=== PATIENT | female | born 1960 | race Two or more races ===

== ENCOUNTER → 2017-02-06 | Outpatient (CLI) | payer OTHER ==
[2017-02-06 13:00] LABS: ALBUMIN 3.4 g/dL (3.4-5.0); CARBON DIOXIDE 24 mmol/L (22-29); CHLORIDE 103 mmol/L (98-107); CREATININE 0.89 mg/dL (0.60-1.30); GLOMERULAR FILTR. RATE CALC > 60 mL/min (>60); PHOSPHORUS 4.4 mg/dL (2.5-4.9); POTASSIUM 4.9 mmol/L (3.5-5.1); SODIUM SERUM 135 mmol/L (136-145); UREA NITROGEN, BLOOD 24 mg/dL (7-18)
[2017-02-06 17:05] LABS: ANION GAP 8 mmol/L (8-16)
[2017-02-08 09:29] LABS: ALBUMIN URINE (ELP24) 76.3 %; ALPHA-1 URINE (ELP24) 2.4 %; GAMMA URINE(ELP24) 7.2 %; TOTAL PROTEIN URINE 67.8 mg/dL (Not Estab.)
[2017-02-08 09:29] LABS: ALBUMIN URINE 77.1 %; BETA URINE 9.3 %; GAMMA URINE 6.9 %; TOTAL PROTEIN URINE 53.9 mg/dL (Not Estab.); UPEP M-SPIKE % Not Observed % (Not Observed)
[2017-02-08 10:18] LABS: ALBUMIN (IFE & ELECTROPHOR) 3.2 g/dL (2.9-4.4); IGG (IMMUNOFIXATION) 1037 mg/dL (700-1600); M-SPIKE (IEP) Not Observed g/dL (Not Observed); TOTAL PROTEIN 6.6 g/dL (6.0-8.5)
== END | disposition home or self-care (01) ==
LOC: LABPV 10:20
PROVIDERS: ATTEND Hospitalist
DX: E11.22 Type 2 diabetes mellitus with diabetic chronic kidney disease (principal); N18.3 Chronic kidney disease, stage 3 (moderate); E87.5 Hyperkalemia
CPT/HCPCS: 81050; 82575; 82784; 84155; 84156; 84165; 84166; 86334; 86335

== ENCOUNTER → 2018-07-05 | Outpatient (CLI) | payer OTHER ==
[2018-07-05 10:40] LABS: BASOPHILS % (AUTO) 0.3 % (0.0-2.0); EOSINOPHILS % (AUTO) 1.4 % (1.0-6.0); HEMATOCRIT 27.8 % (36-46); HEMOGLOBIN 9.1 g/dL (12.0-16.0); LYMPHOCYTES # (AUTO) 2.5 K/uL (1.0-4.8); LYMPHOCYTES % (AUTO) 18.3 % (22.0-44.0); MEAN CORPUSCULAR HEMOGLOBIN 30.6 pg (26.0-34.0); MEAN CORPUSCULAR HGB CONC 32.8 G/dL (31.0-37.0); MEAN CORPUSCULAR VOLUME 93 fL (80-100); MONOCYTES # (AUTO) 0.6 K/uL (0.1-1.0); MONOCYTES % (AUTO) 4.6 % (2.0-9.0); NEUTROPHILS # (AUTO) 10.3 K/uL (1.8-7.7); NEUTROPHILS % (AUTO) 75.4 % (40.0-70.0); PLATELET COUNT (AUTO) 343 K/uL (150-450); RED BLOOD CELL COUNT(AUTO) 2.99 MIL/uL (4.00-5.20); RED CELL DISTRIBUTION WIDTH 13.6 % (11.5-14.5)
[2018-07-05 11:22] LABS: HEMOGLOBIN A1C 7.8 % (4.5-6.2)
[2018-07-05 11:24] LABS: ALBUMIN 3.6 g/dL (3.4-5.0); CALCIUM, TOTAL 8.7 mg/dL (8.8-10.5); CREATININE 1.67 mg/dL (0.60-1.30); PHOSPHORUS 4.5 mg/dL (2.5-4.9); POTASSIUM 5.4 mmol/L (3.5-5.1)
[2018-07-05 11:28] LABS: CREATININE,URINE RANDOM 35.6 mg/dL (30.0-125.0); PROTEIN,URINE RANDOM 9 mg/dL (0-11.9)
[2018-07-05 11:43] LABS: APPEARANCE,URINE CLEAR (CLEAR); BILIRUBIN,URINE NEGATIVE (NEGATIVE); GLUCOSE, URINE (UA) NEGATIVE (NEGATIVE); KETONES,URINE NEGATIVE (NEGATIVE); LEUKOCYTE ESTERASE ,URINE TRACE (NEGATIVE); NITRATE,URINE NEGATIVE (NEGATIVE); OCCULT BLOOD,URINE NEGATIVE (NEGATIVE); PROTEIN,URINE NEGATIVE (NEGATIVE); UROBILINOGEN,URINE 0.2 mg/dL (<=1.0)
[2018-07-05 12:00] LABS: BACTERIA,URINE Many /HPF (None Seen); RBC,URINE 0-2 /HPF (0-2); SQUAMOUS EPITHELIAL CELL,UR Few /LPF (None Seen); WBC,URINE 0-2 /HPF (0-5)
== END | disposition home or self-care (01) ==
LOC: LABPV 08:27
PROVIDERS: ATTEND Hospitalist
DX: I12.9 Hypertensive chronic kidney disease with stage 1 through stage 4 chronic kidney disease, or unspecified chronic kidney disease (principal); E11.22 Type 2 diabetes mellitus with diabetic chronic kidney disease; N18.3 Chronic kidney disease, stage 3 (moderate); E55.9 Vitamin D deficiency, unspecified
CPT/HCPCS: 82570; 83036; 83970; 84156; 87086

== ENCOUNTER → 2018-08-16 | Outpatient (CLI) | payer OTHER ==
[2018-08-16 12:17] LABS: CREATININE,URINE RANDOM 56.1 mg/dL (30.0-125.0)
[2018-08-16 12:22] LABS: ALBUMIN 3.3 g/dL (3.4-5.0); CALCIUM, TOTAL 8.3 mg/dL (8.8-10.5); CREATININE 1.27 mg/dL (0.60-1.30); POTASSIUM 4.3 mmol/L (3.5-5.1)
== END | disposition home or self-care (01) ==
LOC: LABPV 10:36
PROVIDERS: ATTEND Hospitalist
DX: E11.22 Type 2 diabetes mellitus with diabetic chronic kidney disease (principal); E11.21 Type 2 diabetes mellitus with diabetic nephropathy; N18.3 Chronic kidney disease, stage 3 (moderate)
CPT/HCPCS: 82570; 84156

== ENCOUNTER → 2018-12-10 | Outpatient (CLI) | payer OTHER ==
[2018-12-10 13:34] LABS: BASOPHILS % (AUTO) 0.4 % (0.0-2.0); EOSINOPHILS % (AUTO) 1.7 % (1.0-6.0); HEMATOCRIT 27.9 % (36-46); HEMOGLOBIN 9.1 g/dL (12.0-16.0); LYMPHOCYTES # (AUTO) 2.6 K/uL (1.0-4.8); MEAN CORPUSCULAR HEMOGLOBIN 29.4 pg (26.0-34.0); MEAN CORPUSCULAR HGB CONC 32.8 G/dL (31.0-37.0); MEAN CORPUSCULAR VOLUME 90 fL (80-100); MONOCYTES # (AUTO) 0.7 K/uL (0.1-1.0); NEUTROPHILS # (AUTO) 7.5 K/uL (1.8-7.7); NEUTROPHILS % (AUTO) 67.9 % (40.0-70.0); PLATELET COUNT (AUTO) 348 K/uL (150-450); RED BLOOD CELL COUNT(AUTO) 3.11 MIL/uL (4.00-5.20); RED CELL DISTRIBUTION WIDTH 14.5 % (11.5-14.5)
[2018-12-10 13:42] LABS: APPEARANCE,URINE CLEAR (CLEAR); BILIRUBIN,URINE NEGATIVE (NEGATIVE); GLUCOSE, URINE (UA) NEGATIVE (NEGATIVE); KETONES,URINE NEGATIVE (NEGATIVE); LEUKOCYTE ESTERASE ,URINE MODERATE (NEGATIVE); NITRATE,URINE NEGATIVE (NEGATIVE); OCCULT BLOOD,URINE NEGATIVE (NEGATIVE); PROTEIN,URINE NEGATIVE (NEGATIVE); UROBILINOGEN,URINE 0.2 mg/dL (<=1.0)
[2018-12-10 13:43] LABS: HEMOGLOBIN A1C 8.8 % (4.5-6.2)
[2018-12-10 13:47] LABS: ALBUMIN 3.3 g/dL (3.4-5.0); BILIRUBIN,DIRECT 0.1 mg/dL (0.00-0.20); BILIRUBIN,TOTAL 0.4 mg/dL (0.1-1.0); TOTAL PROTEIN, SERUM 7.2 g/dL (6.4-8.2); URIC ACID 8.2 mg/dL (2.6-7.2)
[2018-12-10 13:51] LABS: % IRON SATURATION 20.3 % (22-44)
[2018-12-10 13:57] LABS: RBC,URINE None Seen /HPF (0-2)
[2018-12-10 13:58] LABS: BACTERIA,URINE Moderate /HPF (None Seen); SQUAMOUS EPITHELIAL CELL,UR Few /LPF (None Seen)
== END | disposition home or self-care (01) ==
LOC: LABPV 10:09
PROVIDERS: ATTEND Hospitalist
DX: I12.9 Hypertensive chronic kidney disease with stage 1 through stage 4 chronic kidney disease, or unspecified chronic kidney disease (principal); E11.22 Type 2 diabetes mellitus with diabetic chronic kidney disease; N18.4 Chronic kidney disease, stage 4 (severe); E11.3299 Type 2 diabetes mellitus with mild nonproliferative diabetic retinopathy without macular edema, unspecified eye
CPT/HCPCS: 82043; 82306; 82570; 83036; 83540; 83550; 83970; 84550; 87086

== ENCOUNTER → 2018-12-27 | Outpatient (CLI) | payer OTHER ==
[2018-12-27 11:28] LABS: ALBUMIN 3.2 g/dL (3.4-5.0); CALCIUM, TOTAL 8.8 mg/dL (8.8-10.5); CREATININE 1.35 mg/dL (0.60-1.30); PHOSPHORUS 4.8 mg/dL (2.5-4.9)
== END | disposition home or self-care (01) ==
LOC: LABPV 10:38
PROVIDERS: ATTEND Hospitalist
DX: I12.9 Hypertensive chronic kidney disease with stage 1 through stage 4 chronic kidney disease, or unspecified chronic kidney disease (principal); E11.22 Type 2 diabetes mellitus with diabetic chronic kidney disease; N18.3 Chronic kidney disease, stage 3 (moderate)

== ENCOUNTER → 2019-03-25 | Outpatient (CLI) | payer OTHER ==
[2019-03-25 13:13] LABS: BASOPHILS % (AUTO) 0.4 % (0.0-2.0); EOSINOPHILS % (AUTO) 1.9 % (1.0-6.0); HEMATOCRIT 28.9 % (36-46); HEMOGLOBIN 9.4 g/dL (12.0-16.0); LYMPHOCYTES # (AUTO) 2.7 K/uL (1.0-4.8); MEAN CORPUSCULAR HEMOGLOBIN 30.1 pg (26.0-34.0); MEAN CORPUSCULAR HGB CONC 32.4 G/dL (31.0-37.0); MEAN CORPUSCULAR VOLUME 93 fL (80-100); MONOCYTES # (AUTO) 0.8 K/uL (0.1-1.0); MONOCYTES % (AUTO) 7.3 % (2.0-9.0); NEUTROPHILS # (AUTO) 7.1 K/uL (1.8-7.7); NEUTROPHILS % (AUTO) 65.4 % (40.0-70.0); PLATELET COUNT (AUTO) 394 K/uL (150-450); RED BLOOD CELL COUNT(AUTO) 3.11 MIL/uL (4.00-5.20); RED CELL DISTRIBUTION WIDTH 12.9 % (11.5-14.5)
[2019-03-25 13:17] LABS: PROTEIN,URINE RANDOM 27 mg/dL (0-11.9)
[2019-03-25 13:20] LABS: APPEARANCE,URINE CLEAR (CLEAR); BILIRUBIN,URINE NEGATIVE (NEGATIVE); GLUCOSE, URINE (UA) NEGATIVE (NEGATIVE); KETONES,URINE NEGATIVE (NEGATIVE); LEUKOCYTE ESTERASE ,URINE SMALL (NEGATIVE); NITRATE,URINE NEGATIVE (NEGATIVE); OCCULT BLOOD,URINE NEGATIVE (NEGATIVE); PROTEIN,URINE NEGATIVE (NEGATIVE); UROBILINOGEN,URINE 0.2 mg/dL (<=1.0)
[2019-03-25 13:23] LABS: ALBUMIN 3.4 g/dL (3.4-5.0); CALCIUM, TOTAL 9.2 mg/dL (8.8-10.5); CREATININE 1.49 mg/dL (0.60-1.30); PHOSPHORUS 5.2 mg/dL (2.5-4.9); POTASSIUM 5.2 mmol/L (3.5-5.1)
[2019-03-25 13:29] LABS: BACTERIA,URINE Moderate /HPF (None Seen); RBC,URINE None Seen /HPF (0-2); SQUAMOUS EPITHELIAL CELL,UR Few /LPF (None Seen)
== END | disposition home or self-care (01) ==
LOC: LABPV 12:42
PROVIDERS: ATTEND Hospitalist
DX: I12.9 Hypertensive chronic kidney disease with stage 1 through stage 4 chronic kidney disease, or unspecified chronic kidney disease (principal); E11.22 Type 2 diabetes mellitus with diabetic chronic kidney disease; N18.3 Chronic kidney disease, stage 3 (moderate); E11.21 Type 2 diabetes mellitus with diabetic nephropathy
CPT/HCPCS: 82043; 82570; 84156; 87086

== ENCOUNTER → 2019-07-10 | Outpatient (CLI) | payer OTHER ==
[2019-07-11 10:47] LABS: APPEARANCE,URINE CLOUDY (CLEAR); GLUCOSE, URINE (UA) NEGATIVE (NEGATIVE); OCCULT BLOOD,URINE NEGATIVE (NEGATIVE); PH,URINE 5.5 (5.0-8.0); PROTEIN,URINE NEGATIVE (NEGATIVE)
[2019-07-11 10:48] LABS: BILIRUBIN,URINE NEGATIVE (NEGATIVE); KETONES,URINE NEGATIVE (NEGATIVE); LEUKOCYTE ESTERASE ,URINE LARGE (NEGATIVE); NITRATE,URINE NEGATIVE (NEGATIVE); UROBILINOGEN,URINE 0.2 mg/dL (<=1.0)
[2019-07-11 10:49] LABS: BACTERIA,URINE None Seen /HPF (None Seen); RBC,URINE None Seen /HPF (0-2); SQUAMOUS EPITHELIAL CELL,UR Few /LPF (None Seen)
[2019-07-11 10:51] LABS: CREATININE 1.3 mg/dL (0.60-1.30); HEMOGLOBIN A1C 8.3 % (4.5-6.2); PHOSPHORUS 3.9 mg/dL (2.5-4.9); POTASSIUM 5.2 mmol/L (3.5-5.1)
[2019-07-11 10:52] LABS: ALBUMIN 3.7 g/dL (3.4-5.0)
[2019-07-11 10:55] LABS: HEMATOCRIT 31.8 % (36-46); MEAN CORPUSCULAR HEMOGLOBIN 30.1 pg (26.0-34.0); MEAN CORPUSCULAR HGB CONC 31.5 G/dL (31.0-37.0); MEAN CORPUSCULAR VOLUME 95 fL (80-100); NEUTROPHILS % (AUTO) 66.6 % (40.0-70.0); PLATELET COUNT (AUTO) 340 K/uL (150-450); RED BLOOD CELL COUNT(AUTO) 3.33 MIL/uL (4.00-5.20); RED CELL DISTRIBUTION WIDTH 13.9 % (11.5-14.5)
[2019-07-11 10:56] LABS: BASOPHILS % (AUTO) 0.6 % (0.0-2.0); EOSINOPHILS % (AUTO) 2.9 % (1.0-6.0); LYMPHOCYTES # (AUTO) 2.4 K/uL (1.0-4.8); LYMPHOCYTES % (AUTO) 23.5 % (22.0-44.0); MONOCYTES # (AUTO) 0.7 K/uL (0.1-1.0); MONOCYTES % (AUTO) 6.4 % (2.0-9.0); NEUTROPHILS # (AUTO) 6.9 K/uL (1.8-7.7)
[2019-07-11 11:08] LABS: % IRON SATURATION 25.5 % (22-44)
== END | disposition home or self-care (01) ==
LOC: LABPV 09:03
PROVIDERS: ATTEND Internal Medicine Nephrology
DX: I12.9 Hypertensive chronic kidney disease with stage 1 through stage 4 chronic kidney disease, or unspecified chronic kidney disease (principal); E11.22 Type 2 diabetes mellitus with diabetic chronic kidney disease; N18.3 Chronic kidney disease, stage 3 (moderate); E87.5 Hyperkalemia; D50.9 Iron deficiency anemia, unspecified
CPT/HCPCS: 82043; 82570; 82728; 83036; 83540; 83550; 87086

== ENCOUNTER → 2021-02-07 | Outpatient (CLI) | payer OTHER ==
[2021-02-07 10:09] LABS: BASOPHILS % (AUTO) 0.5 % (0.0-2.0); EOSINOPHILS % (AUTO) 1.7 % (1.0-6.0); HEMATOCRIT 30.4 % (36-46); HEMOGLOBIN 9.9 g/dL (12.0-16.0); LYMPHOCYTES # (AUTO) 2.8 K/uL (1.0-4.8); LYMPHOCYTES % (AUTO) 27.7 % (22.0-44.0); MEAN CORPUSCULAR HEMOGLOBIN 30.9 pg (26.0-34.0); MEAN CORPUSCULAR HGB CONC 32.6 G/dL (31.0-37.0); MEAN CORPUSCULAR VOLUME 95 fL (80-100); MONOCYTES # (AUTO) 0.6 K/uL (0.1-1.0); MONOCYTES % (AUTO) 5.5 % (2.0-9.0); NEUTROPHILS # (AUTO) 6.4 K/uL (1.8-7.7); NEUTROPHILS % (AUTO) 64.6 % (40.0-70.0); PLATELET COUNT (AUTO) 343 K/uL (150-450); RED BLOOD CELL COUNT(AUTO) 3.21 MIL/uL (4.00-5.20); RED CELL DISTRIBUTION WIDTH 12.8 % (11.5-14.5)
[2021-02-07 10:11] LABS: ALBUMIN 3.9 g/dL (3.4-5.0); CALCIUM, TOTAL 8.8 mg/dL (8.8-10.5); CREATININE 1.66 mg/dL (0.60-1.30); PHOSPHORUS 5.1 mg/dL (2.5-4.9); POTASSIUM 4.9 mmol/L (3.5-5.1)
[2021-02-07 10:19] LABS: CREATININE,URINE RANDOM 28.1 mg/dL (30.0-125.0); PROTEIN,URINE RANDOM 8 mg/dL (0-11.9)
[2021-02-07 10:21] LABS: HEMOGLOBIN A1C 7.3 % (3.8-5.6)
[2021-02-07 10:39] LABS: APPEARANCE,URINE CLOUDY (CLEAR); BILIRUBIN,URINE NEGATIVE (NEGATIVE); GLUCOSE, URINE (UA) 500 mg/dL (NEGATIVE); KETONES,URINE NEGATIVE (NEGATIVE); LEUKOCYTE ESTERASE ,URINE SMALL (NEGATIVE); NITRATE,URINE NEGATIVE (NEGATIVE); OCCULT BLOOD,URINE NEGATIVE (NEGATIVE); PH,URINE 5.5 (5.0-8.0); PROTEIN,URINE NEGATIVE (NEGATIVE); UROBILINOGEN,URINE 0.2 mg/dL (<=1.0)
[2021-02-07 11:01] LABS: BACTERIA,URINE Few /HPF (None Seen); RBC,URINE None Seen /HPF (0-2); SQUAMOUS EPITHELIAL CELL,UR Few /LPF (None Seen); WBC,URINE 26-50 /HPF (0-5)
== END | disposition home or self-care (01) ==
LOC: LABPV 09:15
PROVIDERS: ATTEND Hospitalist
DX: N18.32 Chronic kidney disease, stage 3b (principal); E55.9 Vitamin D deficiency, unspecified
CPT/HCPCS: 80069; 81001; 82043; 82306; 82570; 83036; 83970; 84156; 85025; 87086

== ENCOUNTER → 2021-08-08 | Outpatient (CLI) | payer OTHER ==
[2021-08-08 12:19] LABS: BASOPHILS % (AUTO) 0.9 % (0.0-2.0); EOSINOPHILS % (AUTO) 2.9 % (1.0-6.0); HEMATOCRIT 30.2 % (36-46); HEMOGLOBIN 9.8 g/dL (12.0-16.0); LYMPHOCYTES # (AUTO) 2.3 K/uL (1.0-4.8); LYMPHOCYTES % (AUTO) 23.4 % (22.0-44.0); MEAN CORPUSCULAR HEMOGLOBIN 30.5 pg (26.0-34.0); MEAN CORPUSCULAR HGB CONC 32.3 G/dL (31.0-37.0); MEAN CORPUSCULAR VOLUME 94 fL (80-100); MONOCYTES # (AUTO) 0.7 K/uL (0.1-1.0); MONOCYTES % (AUTO) 7.6 % (2.0-9.0); NEUTROPHILS # (AUTO) 6.3 K/uL (1.8-7.7); NEUTROPHILS % (AUTO) 65.2 % (40.0-70.0); PLATELET COUNT (AUTO) 351 K/uL (150-450); RED CELL DISTRIBUTION WIDTH 13.2 % (11.5-14.5)
[2021-08-08 12:27] LABS: HEMOGLOBIN A1C 9.1 % (3.8-5.6)
[2021-08-08 12:28] LABS: % IRON SATURATION 18.7 % (22-44)
[2021-08-08 12:31] LABS: APPEARANCE,URINE CLEAR (CLEAR); BILIRUBIN,URINE NEGATIVE (NEGATIVE); GLUCOSE, URINE (UA) >=1000 mg/dL (NEGATIVE); KETONES,URINE NEGATIVE (NEGATIVE); LEUKOCYTE ESTERASE ,URINE TRACE (NEGATIVE); NITRATE,URINE NEGATIVE (NEGATIVE); OCCULT BLOOD,URINE NEGATIVE (NEGATIVE); PROTEIN,URINE NEGATIVE (NEGATIVE); UROBILINOGEN,URINE 0.2 mg/dL (<=1.0)
[2021-08-08 12:32] LABS: CREATININE,URINE RANDOM 62.3 mg/dL (30.0-125.0); PROTEIN,URINE RANDOM 13 mg/dL (0-11.9)
[2021-08-08 12:39] LABS: ALBUMIN 3.7 g/dL (3.4-5.0); CALCIUM, TOTAL 8.8 mg/dL (8.8-10.5); CHOL/HDL RATIO 3.9 (3.9-5.7); CREATININE 2.06 mg/dL (0.60-1.30); PHOSPHORUS 4.3 mg/dL (2.5-4.9); POTASSIUM 5.3 mmol/L (3.5-5.1)
[2021-08-08 13:12] LABS: BACTERIA,URINE None Seen /HPF (None Seen); RBC,URINE None Seen /HPF (0-2); SQUAMOUS EPITHELIAL CELL,UR Few /LPF (None Seen)
== END | disposition home or self-care (01) ==
LOC: LABPV 08:51
PROVIDERS: ATTEND Hospitalist
DX: E11.22 Type 2 diabetes mellitus with diabetic chronic kidney disease (principal); N18.32 Chronic kidney disease, stage 3b; D63.1 Anemia in chronic kidney disease; E55.9 Vitamin D deficiency, unspecified; E78.89 Other lipoprotein metabolism disorders; E11.69 Type 2 diabetes mellitus with other specified complication
CPT/HCPCS: 80061; 80069; 81001; 82043; 82306; 82570; 82728; 83036; 83540; 83550; 83970; 84156; 85025

== ENCOUNTER → 2021-12-06 | Outpatient (CLI) | payer OTHER ==
[2021-12-06 10:24] LABS: BASOPHILS % (AUTO) 0.5 % (0.0-2.0); EOSINOPHILS % (AUTO) 2.1 % (1.0-6.0); HEMATOCRIT 30.7 % (36-46); HEMOGLOBIN 10.4 g/dL (12.0-16.0); LYMPHOCYTES # (AUTO) 2.9 K/uL (1.0-4.8); LYMPHOCYTES % (AUTO) 26.9 % (22.0-44.0); MEAN CORPUSCULAR HEMOGLOBIN 31.5 pg (26.0-34.0); MEAN CORPUSCULAR HGB CONC 33.8 G/dL (31.0-37.0); MEAN CORPUSCULAR VOLUME 93 fL (80-100); MONOCYTES # (AUTO) 0.5 K/uL (0.1-1.0); NEUTROPHILS % (AUTO) 65.5 % (40.0-70.0); PLATELET COUNT (AUTO) 332 K/uL (150-450); RED BLOOD CELL COUNT(AUTO) 3.29 MIL/uL (4.00-5.20); RED CELL DISTRIBUTION WIDTH 13.4 % (11.5-14.5)
[2021-12-06 10:30] LABS: APPEARANCE,URINE CLOUDY (CLEAR); BILIRUBIN,URINE NEGATIVE (NEGATIVE); GLUCOSE, URINE (UA) >=1000 mg/dL (NEGATIVE); KETONES,URINE NEGATIVE (NEGATIVE); LEUKOCYTE ESTERASE ,URINE MODERATE (NEGATIVE); NITRATE,URINE NEGATIVE (NEGATIVE); OCCULT BLOOD,URINE TRACE (NEGATIVE); PROTEIN,URINE NEGATIVE (NEGATIVE); UROBILINOGEN,URINE 0.2 mg/dL (<=1.0)
[2021-12-06 10:34] LABS: CREATININE,URINE RANDOM 67.4 mg/dL (30.0-125.0); PROTEIN,URINE RANDOM 16 mg/dL (0-11.9)
[2021-12-06 10:45] LABS: BACTERIA,URINE Moderate /HPF (None Seen); RBC,URINE 0-2 /HPF (0-2); SQUAMOUS EPITHELIAL CELL,UR Moderate /LPF (None Seen)
[2021-12-06 10:47] LABS: CHOL/HDL RATIO 4.4 (3.9-5.7)
== END | disposition home or self-care (01) ==
LOC: LABPV 09:27
PROVIDERS: ATTEND Hospitalist
DX: E11.22 Type 2 diabetes mellitus with diabetic chronic kidney disease (principal); N18.32 Chronic kidney disease, stage 3b; R80.9 Proteinuria, unspecified
CPT/HCPCS: 80061; 81001; 82043; 82306; 82570; 84156; 85025; 87086

== ENCOUNTER → 2022-04-11 | Outpatient (CLI) | payer OTHER ==
[2022-04-11 08:52] LABS: BASOPHILS % (AUTO) 0.4 % (0.0-2.0); EOSINOPHILS % (AUTO) 3.1 % (1.0-6.0); HEMATOCRIT 27.4 % (36-46); HEMOGLOBIN 9.1 g/dL (12.0-16.0); LYMPHOCYTES # (AUTO) 3.3 K/uL (1.0-4.8); LYMPHOCYTES % (AUTO) 31.8 % (22.0-44.0); MEAN CORPUSCULAR HEMOGLOBIN 31.7 pg (26.0-34.0); MEAN CORPUSCULAR HGB CONC 33.2 G/dL (31.0-37.0); MEAN CORPUSCULAR VOLUME 96 fL (80-100); MONOCYTES # (AUTO) 0.7 K/uL (0.1-1.0); MONOCYTES % (AUTO) 6.5 % (2.0-9.0); NEUTROPHILS # (AUTO) 6.1 K/uL (1.8-7.7); NEUTROPHILS % (AUTO) 58.2 % (40.0-70.0); PLATELET COUNT (AUTO) 321 K/uL (150-450); RED BLOOD CELL COUNT(AUTO) 2.86 MIL/uL (4.00-5.20); RED CELL DISTRIBUTION WIDTH 13.2 % (11.5-14.5)
[2022-04-11 08:57] LABS: APPEARANCE,URINE CLEAR (CLEAR); BILIRUBIN,URINE NEGATIVE (NEGATIVE); GLUCOSE, URINE (UA) >=1000 mg/dL (NEGATIVE); KETONES,URINE NEGATIVE (NEGATIVE); LEUKOCYTE ESTERASE ,URINE MODERATE (NEGATIVE); NITRATE,URINE NEGATIVE (NEGATIVE); OCCULT BLOOD,URINE NEGATIVE (NEGATIVE); PROTEIN,URINE NEGATIVE (NEGATIVE); SPECIFIC GRAVITIY, URINE 1.007 (1.003-1.030); UROBILINOGEN,URINE <=1.0 mg/dL (<=1.0)
[2022-04-11 09:04] LABS: ALBUMIN 3.4 g/dL (3.4-5.0); CALCIUM, TOTAL 8.5 mg/dL (8.8-10.5); CREATININE 1.72 mg/dL (0.60-1.30); PHOSPHORUS 4.7 mg/dL (2.5-4.9); POTASSIUM 5.1 mmol/L (3.5-5.1); URIC ACID 8.7 mg/dL (2.6-7.2)
[2022-04-11 09:12] LABS: HEMOGLOBIN A1C 8.3 % (3.8-5.6)
[2022-04-11 10:03] LABS: BACTERIA,URINE Few /HPF (None Seen); SQUAMOUS EPITHELIAL CELL,UR Rare /LPF (None Seen)
[2022-04-11 10:04] LABS: RBC,URINE None Seen /HPF (0-2)
== END | disposition home or self-care (01) ==
LOC: LABMN 08:16
PROVIDERS: ATTEND Hospitalist
DX: E11.22 Type 2 diabetes mellitus with diabetic chronic kidney disease (principal); N18.9 Chronic kidney disease, unspecified; D63.1 Anemia in chronic kidney disease
CPT/HCPCS: 80069; 81001; 83036; 84550; 85025; 87086